=== PATIENT | male | born 1935 | race Caucasian/White ===

== ENCOUNTER → 2016-09-05 | Outpatient (CLI) | payer OTHER | LOC: FCPNEURO 20:00 | PROVIDERS: ATTEND Psychiatry & Neurology Sleep Medicine | DX: G47.33 Obstructive sleep apnea (adult) (pediatric) (principal); G47.34 Idiopathic sleep related nonobstructive alveolar hypoventilation ==

== ENCOUNTER 2016-11-13 19:36 | Emergency (ER) | payer OTHER ==
[2016-11-13 19:48] VITALS: RESP 16
[2016-11-13] MEDS ORDERED: NS 1,000 ML IV ONE (19:59)
--- NOTE | 2016-11-13 20:02 | EDPHY ---
H & P Stated Complaint: abd pain Source: Patient Exam Limitations: No limitations - Personal History Current Tetanus/Diphtheria Vaccine: Yes Current Tetanus Diphtheria and Acellular Pertussis (TDAP): Yes Tetanus Vaccine Date: <10 YRS AGO - Medical/Surgical History Hx Asthma: No Hx Chronic Respiratory Disease: No Hx Diabetes: Yes Hx Cardiac Disease: Yes Hx Renal Disease: No Hx Cirrhosis: No Hx Alcoholism: No Hx HIV/AIDS: No Hx Splenectomy or Spleen Trauma: No Other PMH: HTN, DMII, DVT R leg, gastric ulcer, descending aortic aneurysm, - Family History Significant Family History: No pertinent family hx - Social History Smoking Status: Never smoked Alcohol Use: Sober Drug Use: None Time Seen by Provider: 11/13/16 19:53 HPI/ROS: CHIEF COMPLAINT: Abdominal pain HISTORY OF PRESENT ILLNESS: The patient is an 81-year-old man who comes to the emergency department complaining of abdominal pain that began yesterday afternoon. He describes it as bilateral lower abdominal quadrants. He was seen by the PA today and told him he had left lower quadrant pain. He has a history of diabetes, DVT on Coumadin, aortic aneurysm that is being monitored and peptic ulcer disease that was diagnosed 2 months ago. He is currently on omeprazole. He denies upper abdominal pain or heartburn symptoms. No nausea vomiting. No diarrhea. This morning he had a temperature of 99.6. The patient states that he did take some Gas-X and this seemed to improve his symptoms. REVIEW OF SYSTEMS: Constitutional: denies: chills, fever, recent illness, recent injury EENTM: denies: blurred vision, double vision, nose congestion Respiratory: denies: cough, shortness of breath Cardiac: denies: chest pain, irregular heart rate, lightheadedness, palpitations Gastrointestinal/Abdominal: See HPI denies: diarrhea, nausea, vomiting, blood streaked stools Genitourinary: denies: dysuria, frequency, hematuria, pain Musculoskeletal: denies: joint pain, muscle pain Skin: denies: lesions, rash, jaundice, bruising Neurological: denies: headache, numbness, paresthesia, tingling, dizziness, weakness Hematologic/Lymphatic: denies: blood clots, easy bleeding, easy bruising Immunologic/allergic: denies: HIV/AIDS, transplant EXAM: GENERAL: Well-appearing, well-nourished and in no acute distress. HEAD: Atraumatic, normocephalic. EYES: Pupils equal round and reactive to light, extraocular movements intact, sclera anicteric, conjunctiva are normal. ENT: TMs normal, nares patent, oropharynx clear without exudates. Moist mucous membranes. NECK: Normal range of motion, supple without lymphadenopathy or JVD. LUNGS: Breath sounds clear to auscultation bilaterally and equal. No wheezes rales or rhonchi. HEART: Regular rate and rhythm without murmurs, rubs or gallops. ABDOMEN: Soft, nontender, normoactive bowel sounds. No guarding, no rebound. No masses appreciated. BACK: No CVA tenderness, no spinal tenderness, step-offs or deformities EXTREMITIES: Normal range of motion, no pitting or edema. No clubbing or cyanosis. NEUROLOGICAL: Cranial nerves II through XII grossly intact. Normal speech, normal gait. 5/5 strength, normal movement in all extremities, normal sensation PSYCH: Normal mood, normal affect. SKIN: Warm, dry, normal turgor, no visible rashes or lesions. (Zeb Melissa) Constitutional: Initial Vital Signs Temperature (C) 37.2 C 11/13/16 19:44 Heart Rate 81 11/13/16 19:44 Respiratory Rate 16 11/13/16 19:44 Blood Pressure 137/101 H 11/13/16 19:44 O2 Sat (%) 92 11/13/16 19:44 O2 Delivery Mode Room Air Allergies/Adverse Reactions: zolpidem tartrate [From Ambien] Allergy (Intermediate, Verified 09/02/12 11:41) RASH ON BILAT LEGS Home Medications: Medication Instructions Recorded Atenolol 11/13/16 Coumadin 11/13/16 Lisinopril 11/13/16 Metformin HCl 11/13/16 Omeprazole 11/13/16 Prednisone 11/13/16 Tamsulosin HCl 11/13/16 oxyCODONE/APAP 5/325 [Percocet 1 - 2 tab PO Q4H PRN #20 tab 11/13/16 5/325 (*)] Medical Decision Making ED Course/Re-evaluation: 9:00 p.m. care transferred to Dr. Everette Bhatia pending CT scan. If this is negative I suspect the patient will be stable for discharge. (Zeb Melissa) Differential Diagnosis: Partial list of the Differential diagnosis considered include but were not limited to; gastroenteritis, adenitis, diverticulitis, hernia and although unlikely based on the history and physical exam, I also considered aneurysm, dissection, ischemia, volvulus. (Zeb Melissa) Other Provider: This patient was signed out to me at 9pm by Dr. Melissa pending CTAP. This study reveals two kidney stones in his left ureter, which appears to be the cause of pain. Patient agrees his pain feels similar to prior kidney stones. Given age of patient, size of stones and presence of two stones, I offered the patient admission to the hospital. He refuses, however, and would like to be discharged home to try and follow-up with Dr. Will in the morning. He is currently pain-free. We discussed strict return precautions, including need for return to the ED if he is unable to obtain close follow-up. He is agreeable to this plan. He cannot take NSAIDs secondary to a stomach ulcer. (Everette Bhatia) - Data Points Laboratory Results: Laboratory Results 11/13/16 20:02 11/13/16 20:02 Medications Given: Discontinued Medications Sodium Chloride (Ns) 1,000 mls @ 0 mls/hr IV EDNOW ONE; Wide Open PRN Reason: Protocol Stop: 11/13/16 20:00 Last Admin: 11/13/16 20:08 Dose: 1,000 mls Oxycodone/Acetaminophen (Percocet 5/325mg Prepack#4) 1 btl TAKEHOME EDNOW ONE Stop: 11/13/16 21:53 Last Admin: 11/13/16 22:09 Dose: 1 btl Departure - Departure Disposition: Home, Routine, Self-Care Clinical Impression: Renal colic on left side Condition: Good Instructions: Renal Colic (ED) Additional Instructions: Followup with your urologist within one week. Return to the emergency apartment for fever, severe pain, inability to urinate or other concerns. Strain urine to try and catch the kidney stone and bring this to the urology appointment. Referrals: Victorino Estes MD [Primary Care Provider] - As per Instructions Diaz Will MD [Medical Doctor] - As per Instructions Prescriptions: oxyCODONE/APAP 5/325 [Percocet 5/325 (*)] 1 - 2 tab PO Q4H PRN #20 tab PRN Reason: Pain, Severe
[2016-11-13 20:20] LABS: % IMMATURE GRANULYOCYTES 0.5 % (0.0-1.1); ABSOLUTE IMMATURE GRANULOCYTES 0.04 10^3/uL (0.00-0.10); ADD DIFF? NO; ADD MORPH? NO; ADD SCAN? NO; ATYPICAL LYMPHOCYTE FLAG 0 (0-99); FRAGMENT RBC FLAG 0 (0-99); HEMATOCRIT 47.8 % (40.0-51.0); HEMOGLOBIN 16.1 g/dL (13.7-17.5); LEFT SHIFT FLG 0 (0-99); LIPEMIA HEMOLYSIS FLAG 80 (0-99); MEAN CELL HEMOGLOBIN 32.8 pg (27.9-34.1); MEAN CELL HEMOGLOBIN CONCENTR. 33.7 g/dL (32.4-36.7); MEAN CELL VOLUME 97.4 fL (81.5-99.8); MEAN PLATELET VOLUME 10.4 fL (8.7-11.7); PLATELET CLUMPS FLAG 0 (0-99); PLATELET COUNT 150 10^3/uL (150-400); RED BLOOD CELL COUNT 4.91 10^6/uL (4.40-6.38); RED CELL DISTRIBUTION WIDTH 13.4 % (11.5-15.2)
[2016-11-13] MEDS ORDERED: IOPAMIDOL (ISOVUE-300) 100 ML BTL ONE (20:28)
[2016-11-13 20:30] LABS: INR 1.86 (0.83-1.16); PROTIME(PATIENT) 21.5 SEC (12.0-15.0)
[2016-11-13 20:31] LABS: APTT 40.3 SEC (23.0-38.0)
[2016-11-13 20:38] LABS: ALANINE AMINOTRANSFERASE 26 IU/L (21-72); ALBUMIN 4.1 g/dL (3.5-5.0); ALKALINE PHOSPHATASE 63 IU/L (38-126); ANION GAP 12 mEq/L (8-16); ASPARTATE AMINOTRANSFERASE 18 IU/L (17-59); BILIRUBIN,TOTAL 1.2 mg/dL (0.1-1.4); BILIRUBIN-CONJUGATED 0.3 mg/dL (0.0-0.5); BILIRUBIN-UNCONJUGATED 0.9 mg/dL (0.0-1.1); CALCIUM 9.2 mg/dL (8.5-10.4); CARBON DIOXIDE 20 mEq/l (22-31); CHLORIDE 108 mEq/L (97-110); CREATININE 1.5 mg/dL (0.7-1.3); GLOMERULAR FILTRATION RATE 45; GLUCOSE 112 mg/dL (70-100); POTASSIUM 4.2 mEq/L (3.5-5.2); SODIUM 140 mEq/L (134-144); TOTAL PROTEIN 6.5 g/dL (6.3-8.2)
[2016-11-13 21:37] LABS: COLOR YELLOW; LEUKOCYTE ESTERASE,URINE NEGATIVE (NEGATIVE); NITRITE,URINE NEGATIVE (NEGATIVE)
[2016-11-13 21:44] LABS: MUCUS TRACE /lpf (NONE-1+); RBC,URINE 50-182 /hpf (0-3)
[2016-11-13] MEDS ORDERED: OXYCODONE/APAP 5/325MG PREPACK#4 BTL TAKEHOME ONE (21:52)
[2016-11-13 22:21] VITALS: BP 135/90; PULSE 80; TEMP 98.6; O2SAT 93
== END 2016-11-13 22:18 | disposition home or self-care (01) ==
DX: N23 Unspecified renal colic (principal); I10 Essential (primary) hypertension; E11.9 Type 2 diabetes mellitus without complications; E86.9 Volume depletion, unspecified; Z79.01 Long term (current) use of anticoagulants; Z79.84 Long term (current) use of oral hypoglycemic drugs
CPT/HCPCS: 74177; 96360; 99285; Q9967

== ENCOUNTER → 2016-12-10 | Outpatient (CLI) | payer OTHER | LOC: FIMAGING 10:17 | PROVIDERS: ATTEND Urology | DX: Z87.442 Personal history of urinary calculi (principal) ==

== ENCOUNTER → 2017-04-02 | Outpatient (CLI) | payer OTHER ==
--- NOTE | 2017-04-02 11:47 | NOWCEV ---
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 Chico does experience severe, debilitating pain in his LB and hips which he reports can become as high as a 9/10. He received weekly injections of pain medications in his spine to manage symptoms, but continues to have significant debility. Chico's ability to ambulate has been declining for some time due to his pain and progressing arthritis, and he is now having difficulty accessing MRADLs in his home. He was referred to this clinic by his doctor to have recommendation made for the most medically appropriate power mobility device to meet his needs in the home. Functional Mobility - Chico is able to ambulate short distances with his rollator walker. Maximally he can ambulate 50', but on days where his pain in exacerbated he has difficulty walking distances between the bedroom, bathroom, and kitchen. When he walks he has a narrow XOCHITL where his feet frequently touch , and a flexed posture where he places a significant amount of weight through his UEs on his rollator walker to offload his spine and decrease pain. Chico becomes short of breath ambulating 30' distances in the clinic and cannot statically stand, even when pressing down through his rollator, due to increased back pain. He report on days when his pain is exacerbated he stays in bed and has difficulty ambulating distances to the bathroom. To complete transfers, Chico requires significant UE support from his walker and chair to transition to standing, and use of his rollator walker to perform a stand step transition. He is independent with bed mobility. Chico reports that he has trialed driving a friend's power scooter, and was able to safely transfer on/ off the device and maneuver the scooter without difficulty or concerns of safety. Motor involvement - Chico has significant tightness in B hamstring, and pain with all ROM in B hips due to his OA. He has significant limitations in B shoulders due to his rotator cuff tears. R shoulder flexion is limited to 90degrees, and L shoulder flexion is limited to 120degrees. MMT is as follows: DF B: 4/5, knee extension B: 4+/5, hip flexion B: 4/5, hip abduction L: 2+/5, R : 3-/5, shoulder flexion and abduction B: 4-/5 in available range, and painful. Chico also has impaired balance, and has a h/o 1 fall when ambulating in his home with his AD. He can only stand for ~1min on a "good day" due to the pain in his LB. Posture - Chico sits with a kyphotic posture, posterior pelvic tilt, forward head, and rounded shoulders. His R shoulder is lower than his L, and his pelvis is relatively level. Skin/ Sensation - Chico does not have any h/o skin breakdown. He does have decreased sensation in his feet from his diabetic neuropathy. He also reports radicular pain into his R L4/L5 distributions. He has 1+ pitting edema in his R LE as a result of his DVT. Endurance - Chico has severely limited endurance. Maximally he can ambulate 50' with use of his rollator walker. When his pain is exacerbated, he has difficulty getting out of bed and ambulating distances between rooms in his home to access ADLs. ADLs - Chico completes all ADLs such as dressing, bathing, and washing up at a modified independent level from a seated position. He relies fully on his to complete tasks such as cooking and cleaning, as his ability to stand and ambulate to complete activities is limited by pain in his back and hips. Cognitive/Social - Chico lives with his in a single level home with a level entry. He is retired and he is able to drive. Current wheelchair - Chico does not own any manual wheelchair, power wheelchair or power scooter. MEDICAL and FUNCTIONAL NEED/OBJECTIVES * To procure a power scooter to provide Chico with safe and consistent access to MRADLs in the home. PRIMARY FUNCTIONAL LIMITATION (G Code) * Mobility CURRENT STATUS OF PRIMARY FUNCTIONAL LIMITATION (Severity Modifier) * At least 60 percent but less than 80 percent impaired, limited or restricted ( CL) GOAL STATUS OF PRIMARY FUNCTIONAL LIMITATION (Severity Modifier) * At least 60 percent but less than 80 percent impaired, limited or restricted ( CL) DISCHARGE STATUS OF PRIMARY FUNCTIONAL LIMITATION (Severity Modifier) * At least 60 percent but less than 80 percent impaired, limited or restricted ( CL) EQUIPMENT RECOMMENDATIONS AND JUSTIFICATIONS The following recommendations are believed to be the most cost effective way to meet the patients medical and functional needs. * Pride 4-wheel power scooter: Needed to provide Chico with safe and consistent access to MRADLs in the home. Chico cannot consistently ambulate distances in him home between the bedroom, bathroom, and kitchen to allow him to access MRADLs even with use of his rollator walker due to severe back and hip pain. Chico cannot self propel a MWC, even a light weight or ultra light weight model due to B rotator cuff tears and decreased UE strength. A power scooter will allow Chico is safety and consistently access MRADLs in his home without exacerbating his pain. Chico has trialed a power scooter and was able to safety transfer on/off the device independently, and was able to safely drive the device utilizing the [employer] system without concern or difficulty. These recommendations are based on the likelihood that Chico will require the use of a power mobility device for mobility for the rest of his life as his OA continues to progress. Chico is willing and able to safely utilize the power scooter. If you have any questions or concerns regarding the stated recommendations, please feel free to contact the therapist at . Thank you for your cooperation in obtaining the necessary equipment for this patient. MARYANN Samuel
== END ==
PROVIDERS: ATTEND Internal Medicine Rheumatology
DX: M43.06 Spondylolysis, lumbar region (principal); Z99.3 Dependence on wheelchair
CPT/HCPCS: 97162; G8978; G8979; G8980

== ENCOUNTER 2017-04-15 06:50 | Emergency (ER) | payer OTHER ==
[2017-04-15 07:06] VITALS: RESP 18
[2017-04-15] MEDS ORDERED: HYDROmorphONE/DILAUDID 1 MG/ML INJ ONE (07:22)
[2017-04-15] MEDS ORDERED: ONDANSETRON 4 MG/2 ML VIAL ONE (07:22)
[2017-04-15] MEDS ORDERED: HYDROmorphONE/DILAUDID 1 MG/ML INJ IVP ONE ×3 (07:29→09:22)
[2017-04-15] MEDS ORDERED: ONDANSETRON 4 MG/2 ML VIAL IVP ONE (07:29)
--- NOTE | 2017-04-15 07:35 | EDPHY ---
HPI/HX/ROS/PE/MDM Narrative: CHIEF COMPLAINT: Abdominal pain, hematuria HISTORY OF PRESENT ILLNESS: This patient is an anticoagulated (Coumadin) 82 year old male with history of diabetes and DVT complaining of two day history of hematuria and abdominal and back pain onset around 2am this morning. Hematuria began two days ago, but seemed to have resolved by this morning. Today, he woke at 2am with pain that initially seemed like a stomach ache. He took Pepcid with no relief. He currently has pain in his right lower quadrant and suprapubic area. This does not radiate to his testicles. He has right-sided low back pain as well but is not sure whether this is new or due to his low back arthritis. He is nauseous and has been dry heaving but denies vomiting. No fever, chills, chest pain, shortness of breath, palpitations, diarrhea, headache, lightheadedness. REVIEW OF SYSTEMS: Aside from elements discussed in the HPI, a comprehensive 10-point review of systems was reviewed and is negative. PAST MEDICAL HISTORY: 1. Arthritis 2. History of right-sided DVT (Coumadin) 3. Stomach ulcer 4. Diabetes mellitus type II (Metformin) 5. History of aortic aneurysm. SOCIAL HISTORY: . at bedside. Lives in [place]. Retired. VITAL SIGNS: Reviewed by me GENERAL: Well-developed, well-nourished, resting comfortably in no respiratory distress. HEENT: Atraumatic. Eyes: No icterus, no injection. Mouth: moist mucous membranes. No erythema or lesions. Neck: supple with no adenopathy. LUNGS: Clear to auscultation bilaterally, no wheezes, rhonchi or rales. CARDIAC: Regular rate and rhythm, no rubs, murmurs or gallops. ABDOMEN: Right lower quadrant, suprapubic tenderness. Soft, nondistended, bowel sounds normal. BACK: Right lumbar paraspinous muscle spasm. No left CVA tenderness. EXTREMITIES: Right lower extremity slightly swollen. Good pedal and femoral pulses. No trauma. No edema. Range of motion is normal throughout. NEURO: Alert and oriented, grossly nonfocal. SKIN: Warm and dry, no rash. PSYCHIATRIC: Normal mentation, no agitation. Portions of this note were transcribed by a biomedical manager. I personally performed a history, physical exam, medical decision making, and confirmed accuracy of information the transcribed note. ED Course: This 82 year old male presents with right lower quadrant and suprapubic abdominal pain and tenderness onset at 2am this morning. Exam additionally reveals a muscle spasm in his right lumbar paraspinous muscles. Patient notes his INR was high last Friday and he recently reduced his Coumadin dosage. IV established. Plan for labs including CBC, chemistries, coag, UA. Plan for CT abdomen w/o contrast to r/o kidney stone or other acute processes. Plan to administer 1mg IV Dilaudid and 4mg IV Zofran for symptom relief. Patient continues to complain of pain. Plan to administer an additional 0.5mg IV Dilaudid. Plan to administer 0.5mg IV Ativan for relief of the patient's right paraspinous muscle spasm. 8:[address] Cordero, radiologist. CT abdomen/pelvis shows 3mm stone at right UVJ with obstructive uropathy. Reassessed patient. Discussed imaging results with him and his . UA pending. UA positive for urine blood. No evidence of UTI. Reviewed laboratory results. INR therapeutic at 2.65 09:18 Reassessed patient. He is resting comfortably but continues to complain of pain 6/10 in severity. Administered an additional 1mg IV Dilaudid. Administered 0.4mg PO Flomax. 10:26 Plan to discharge home in good condition with prescription for Percocet and Zofran. He has Flomax at home. The patient will follow up with his urologist , Dr. Will. Return precautions discussed. He and his are comfortable with this plan. MDM: Differential diagnosis of the patient's flank pain was considered including but not limited to musculoskeletal causes, kidney stone, pyelonephritis, shingles, and intra-abdominal causes such as diverticulitis and appendicitis. - Data Points Imaging Results: CT Abdomen Impression: 1. Right-sided obstructive uropathy related to a 3 mm distal ureteral calculus at the ureterovesical junction. 2. See above report for additional findings. Results called and discussed with Tova Walls M.D. on 04/15/2017 at 8:28 a.m. Dictated By: Ji Cordero MD Imaging: Discussed imaging studies w/ fisher scallop Radiologist Laboratory Results: Laboratory Results 04/15/17 07:23 04/15/17 07:23 Medications Given: Discontinued Medications Hydromorphone HCl (Dilaudid) 1 mg IVP EDNOW ONE Stop: 04/15/17 07:30 Last Admin: 04/15/17 07:32 Dose: 1 mg Hydromorphone HCl (Dilaudid) 1 mg IVP EDNOW ONE Stop: 04/15/17 09:23 Last Admin: 04/15/17 09:23 Dose: 1 mg Sodium Chloride (Ns) 500 mls @ 1,000 mls/hr IV EDNOW ONE PRN Reason: Protocol Stop: 04/15/17 10:20 Last Admin: 04/15/17 09:50 Dose: 500 mls Lorazepam (Ativan Injection) 0.5 mg IVP EDNOW ONE Stop: 04/15/17 08:15 Last Admin: 04/15/17 08:30 Dose: 0.5 mg Ondansetron HCl (Zofran) 4 mg IVP EDNOW ONE Stop: 04/15/17 07:30 Last Admin: 04/15/17 07:32 Dose: 4 mg Tamsulosin HCl (Flomax) 0.4 mg PO EDNOW ONE Stop: 04/15/17 09:23 Last Admin: 04/15/17 09:23 Dose: 0.4 mg General Initial Vital Signs: Initial Vital Signs Temperature (C) 36.5 C 04/15/17 07:04 Heart Rate 64 04/15/17 07:04 Respiratory Rate 18 04/15/17 07:04 Blood Pressure 164/97 H 04/15/17 07:04 O2 Sat (%) 93 04/15/17 07:04 O2 Delivery Mode Room Air O2 (L/minute) 2 Allergies/Adverse Reactions: zolpidem tartrate [From Ambien] Allergy (Intermediate, Verified 04/15/17 07:02) RASH ON BILAT LEGS Home Medications: Medication Instructions Recorded Atenolol 11/13/16 Coumadin 11/13/16 Lisinopril 11/13/16 Metformin HCl 11/13/16 Omeprazole 11/13/16 Prednisone 11/13/16 Hydrocodon-Acetaminophen 5-500 04/15/17 Ondansetron Odt [Zofran Odt 4 mg 4 mg PO Q6 PRN #8 tab 04/15/17 (RX)] Oxycodone HCl 5 mg PO QID PRN #15 capsule 04/15/17 Departure - Departure Disposition: Home, Routine, Self-Care Clinical Impression: Calculus of right kidney Condition: Good Instructions: Kidney Stones (ED), How to Strain Your Urine (ED) Additional Instructions: 1. Follow up with your urologist within one week. 2. Take Percocet as prescribed as needed for severe pain. You may also take Tylenol (acetaminophen) 650mg every 4-6 hours as needed for pain, but do not take this in addition to Percocet as that medication already contains acetaminophen. No more than 3000mg of Acetaminophen should be taken in 24 hours (for an adult). 3. Take Zofran as prescribed as needed for nausea. 4. Return to the emergency department for fever, severe pain, inability to urinate or other concerns. 5. Strain urine to try and catch the kidney stone and bring this to the urology appointment. Referrals: Victorino Estes MD [Primary Care Provider] - As per Instructions Diaz Will MD [Medical Doctor] - As per Instructions Prescriptions: Ondansetron Odt [Zofran Odt 4 mg (RX)] 4 mg PO Q6 PRN #8 tab PRN Reason: Nausea Oxycodone HCl 5 mg PO QID PRN #15 capsule PRN Reason: Pain, Breakthrough Report Scribed for: Tova Walls Report Scribed by: Myla Wan Date of Report: 04/15/17 Time of Report: 08:30
[2017-04-15 07:45] LABS: % IMMATURE GRANULYOCYTES 0.5 % (0.0-1.1); ABSOLUTE IMMATURE GRANULOCYTES 0.05 10^3/uL (0.00-0.10); ADD DIFF? NO; ADD MORPH? NO; ADD SCAN? NO; ATYPICAL LYMPHOCYTE FLAG 0 (0-99); FRAGMENT RBC FLAG 0 (0-99); HEMATOCRIT 45.1 % (40.0-51.0); HEMOGLOBIN 15.5 g/dL (13.7-17.5); LEFT SHIFT FLG 0 (0-99); LIPEMIA HEMOLYSIS FLAG 90 (0-99); MEAN CELL HEMOGLOBIN 31.8 pg (27.9-34.1); MEAN CELL HEMOGLOBIN CONCENTR. 34.4 g/dL (32.4-36.7); MEAN CELL VOLUME 92.6 fL (81.5-99.8); MEAN PLATELET VOLUME 10.4 fL (8.7-11.7); PLATELET CLUMPS FLAG 0 (0-99); PLATELET COUNT 156 10^3/uL (150-400); RED BLOOD CELL COUNT 4.87 10^6/uL (4.40-6.38); RED CELL DISTRIBUTION WIDTH 14.2 % (11.5-15.2)
[2017-04-15 07:53] LABS: INR 2.65 (0.83-1.16); PROTIME(PATIENT) 28.2 SEC (12.0-15.0)
[2017-04-15 07:54] LABS: APTT 40.9 SEC (23.0-38.0)
[2017-04-15 07:55] LABS: ANION GAP 10 mEq/L (8-16); CALCIUM 9.2 mg/dL (8.5-10.4); CARBON DIOXIDE 23 mEq/l (22-31); CHLORIDE 110 mEq/L (97-110); CREATININE 1.1 mg/dL (0.7-1.3); GLOMERULAR FILTRATION RATE > 60; GLUCOSE 158 mg/dL (70-100); POTASSIUM 4.2 mEq/L (3.5-5.2); SODIUM 143 mEq/L (134-144)
[2017-04-15] MEDS ORDERED: LORazepam 2 MG/ML INJ IVP ONE (08:14)
[2017-04-15] MEDS ORDERED: TAMSULOSIN HCL 0.4 MG CAP PO ONE ×2 (09:20→09:22)
[2017-04-15 09:31] LABS: COLOR YELLOW; LEUKOCYTE ESTERASE,URINE NEGATIVE (NEGATIVE); NITRITE,URINE NEGATIVE (NEGATIVE)
[2017-04-15 09:48] LABS: BACTERIA TRACE /hpf (NONE SEEN); MUCUS 3+ /lpf (NONE-1+); RBC,URINE 50-182 /hpf (0-3)
[2017-04-15] MEDS ORDERED: NS 500 ML IV ONE (09:51)
[2017-04-15 10:49] VITALS: BP 129/65; PULSE 69; TEMP 98.8; O2SAT 94
== END 2017-04-15 10:49 | disposition home or self-care (01) ==
DX: N20.0 Calculus of kidney (principal); E11.9 Type 2 diabetes mellitus without complications; E86.9 Volume depletion, unspecified; Z79.01 Long term (current) use of anticoagulants; Z79.84 Long term (current) use of oral hypoglycemic drugs
CPT/HCPCS: 74176; 96374; 96375; 96376; 99285; J1170; J2060; J2405

== ENCOUNTER 2017-04-26 10:54 | Emergency (ER) | payer OTHER ==
[2017-04-26] MEDS ORDERED: ONDANSETRON 4 MG/2 ML VIAL ONE (11:41)
[2017-04-26] MEDS ORDERED: HYDROmorphONE/DILAUDID 1 MG/ML INJ IVP ONE (12:01)
[2017-04-26] MEDS ORDERED: KETOROLAC 30 MG/1 ML SDV IVP ONE (12:02)
--- NOTE | 2017-04-26 12:06 | EDPHY ---
H & P Time Seen by Provider: 04/26/17 11:41 HPI/ROS: Chief complaint. Right flank pain HPI. 82-year-old male seen 2 weeks ago in the emergency department for kidney stone. He presents today with right flank pain that began this morning. He thinks he passed the previous kidney stone. This feels similar. Nausea without vomiting. Pain and right flank radiating down to right groin and testicle. No blood in his urine. He is on Coumadin for previous DVT. No fever. No urinary symptoms. Patient feels he can't find a comfortable position and the discomfort is not particularly worse with movement. ROS Constitutional. no fever/chills, no weakness Eyes. no problems with vision ENT. no sore throat, no nasal drainage Cardiovascular. no chest pain Respiratory. no shortness of breath, no cough Abdominal. Right flank pain with nausea . no problems urinating MS. no calf pain/swelling, no neck/back pain, no joint pain Skin. no rash Lymph. no swollen glands Neuro. no headache, no dizziness, no difficulty walking or with speech Past Medical/Surgical History: Kidney stones, hypertension, diabetes, DVT, peptic ulcer disease, descending aortic aneurysm Social History: , nonsmoker, no alcohol Smoking Status: Never smoked Physical Exam: General Appearance: Alert well-developed male moderate distress vital signs stable Eyes: Pupils equal and round no pallor or injection. ENT, Mouth: Mucous membranes are moist. Respiratory: There are no retractions, lungs are clear to auscultation. Cardiovascular: Regular rate and rhythm. Gastrointestinal: Abdomen is soft and nontender, no masses, bowel sounds normal. Patient shows me right flank pain and right lower quadrant pain but it is not worse with palpation. No organomegaly. No pulsatile mass. Normal bowel sounds Neurological: Awake and alert, sensory and motor exams grossly normal. Skin: Warm and dry, no rashes. Musculoskeletal: Neck is supple nontender. Extremities symmetrical, full range of motion. Psychiatric: Patient is oriented X 3, there is no agitation. Constitutional: Initial Vital Signs Temperature (C) 36.5 C 04/26/17 10:59 Heart Rate 60 04/26/17 10:59 Respiratory Rate 18 04/26/17 10:59 Blood Pressure 132/74 H 04/26/17 10:59 O2 Sat (%) 89 L 04/26/17 10:59 O2 Delivery Mode Nasal Cannula O2 (L/minute) 2 Allergies/Adverse Reactions: zolpidem tartrate [From Ambien] Allergy (Intermediate, Verified 04/15/17 07:02) RASH ON BILAT LEGS Home Medications: Medication Instructions Recorded Atenolol 11/13/16 Coumadin 11/13/16 Lisinopril 11/13/16 Metformin HCl 11/13/16 Omeprazole 11/13/16 Prednisone 11/13/16 Hydrocodon-Acetaminophen 5-500 04/15/17 Ondansetron Odt [Zofran Odt 4 mg 4 mg PO Q6 PRN #8 tab 04/15/17 (RX)] Oxycodone HCl 5 mg PO QID PRN #15 capsule 04/15/17 Ondansetron Odt [Zofran Odt] 4 mg PO Q4PRN PRN #4 tab 04/26/17 oxyCODONE/APAP 5/325 [Percocet 1 tab PO Q4-6PRN PRN #10 tab 04/26/17 5/325] Medical Decision Making - Diagnostics Imaging Results: Imaging Impressions Abdomen/Pelvis CT 04/26/17 12:01 Impression: 1 ureteral stone has passed. The other has moved caudally and is now in the distal ureter. Results called and discussed with ADOLPH BRADLEY, at 04/26/2017 13:09 Attention: This CT examination is specifically designed to evaluate patients who are clinically suspected of having acute obstructive uropathy. This examination does not use radiographic contrast, and as such, provides only a limited evaluation of the abdomen, pelvis and retroperitoneum. If there is further clinical suspicion for pathological conditions other than obstructive uropathy, a complete CT evaluation of the abdomen and pelvis utilizing intravenous, oral, and rectal contrast should be considered. General information for patients regarding this examination can be found at [email or web address]. If you have questions or comments about this report, please contact me at [phone] (hospital) or [phone] (cell). Noncontrast CT abdomen and pelvis shows that the previous 3 mm stone had passed. There is a 6 mm stone about 2 cm above the UVJ with moderate hydronephrosis Procedures: IV normal saline. Zofran, Dilaudid, Toradol IV ED Course/Re-evaluation: Re-evaluation 2:20 p.m.--patient is stable. No pain. He the patient, his , and I discussed imaging study and lab results. We discussed treatment plan. He is offered admission but would like to be treated as outpatient. He is encouraged to return should oral pain medication not be strong enough. He is also encouraged to follow up with Urology. They expressed understanding and agreement Differential Diagnosis: Considered diverticulitis, kidney infection, kidney stone Urinalysis shows blood only and no evidence for infection - Data Points Laboratory Results: Laboratory Results 04/26/17 11:35 04/26/17 11:35 04/26/17 04/26/17 04/26/17 14:24 11:35 11:35 WBC RBC Hgb Hct MCV MCH MCHC RDW Plt Count MPV Neut % (Auto) Lymph % (Auto) Karnes % (Auto) Eos % (Auto) Baso % (Auto) Nucleat RBC Rel Count Absolute Neuts (auto) Absolute Lymphs (auto) Absolute Monos (auto) Absolute Eos (auto) Absolute Basos (auto) Absolute Nucleated RBC Immature Gran % Immature Gran # PT 20.3 SEC H SEC (12.0-15.0) INR 1.72 H (0.83-1.16) APTT 35.9 SEC SEC (23.0-38.0) Sodium 146 mEq/L H mEq/L (134-144) Potassium 4.2 mEq/L mEq/L (3.5-5.2) Chloride 108 mEq/L mEq/L (97-110) Carbon Dioxide 23 mEq/l mEq/l (22-31) Anion Gap 15 mEq/L mEq/L (8-16) BUN 31 mg/dL H mg/dL (7-23) Creatinine 1.1 mg/dL mg/dL (0.7-1.3) Estimated GFR > 60 Glucose 109 mg/dL H mg/dL (70-100) Calcium 9.0 mg/dL mg/dL (8.5-10.4) Urine Color YELLOW Urine Appearance CLEAR Urine pH 5.0 (5.0-7.5) Ur Specific Hay 1.023 (1.002-1.030) Urine Protein NEGATIVE (NEGATIVE) Urine Ketones NEGATIVE (NEGATIVE) Urine Blood 3+ H (NEGATIVE) Urine Nitrate NEGATIVE (NEGATIVE) Urine Bilirubin NEGATIVE (NEGATIVE) Urine Urobilinogen NEGATIVE EU EU (0.2-1.0) Ur Leukocyte Esterase NEGATIVE (NEGATIVE) Urine RBC 50-182 /hpf H /hpf (0-3) Urine WBC 1-3 /hpf /hpf (0-3) Ur Epithelial Cells NONE SEEN /lpf /lpf (NONE-1+) Urine Mucus 1+ /lpf /lpf (NONE-1+) Urine Glucose NEGATIVE (NEGATIVE) 04/26/17 11:35 WBC 8.62 10^3/uL 10^3/uL (3.80-9.50) RBC 4.69 10^6/uL 10^6/uL (4.40-6.38) Hgb 15.0 g/dL g/dL (13.7-17.5) Hct 45.3 % % (40.0-51.0) MCV 96.6 fL fL (81.5-99.8) MCH 32.0 pg pg (27.9-34.1) MCHC 33.1 g/dL g/dL (32.4-36.7) RDW 14.4 % % (11.5-15.2) Plt Count 154 10^3/uL 10^3/uL (150-400) MPV 10.6 fL fL (8.7-11.7) Neut % (Auto) 78.7 % H % (39.3-74.2) Lymph % (Auto) 10.7 % L % (15.0-45.0) Karnes % (Auto) 9.4 % % (4.5-13.0) Eos % (Auto) 0.5 % L % (0.6-7.6) Baso % (Auto) 0.2 % L % (0.3-1.7) Nucleat RBC Rel Count 0.0 % % (0.0-0.2) Absolute Neuts (auto) 6.79 10^3/uL H 10^3/uL (1.70-6.50) Absolute Lymphs (auto) 0.92 10^3/uL L 10^3/uL (1.00-3.00) Absolute Monos (auto) 0.81 10^3/uL H 10^3/uL (0.30-0.80) Absolute Eos (auto) 0.04 10^3/uL 10^3/uL (0.03-0.40) Absolute Basos (auto) 0.02 10^3/uL 10^3/uL (0.02-0.10) Absolute Nucleated RBC 0.00 10^3/uL 10^3/uL (0-0.01) Immature Gran % 0.5 % % (0.0-1.1) Immature Gran # 0.04 10^3/uL 10^3/uL (0.00-0.10) PT INR APTT Sodium Potassium Chloride Carbon Dioxide Anion Gap BUN Creatinine Estimated GFR Glucose Calcium Urine Color Urine Appearance Urine pH Ur Specific Hay Urine Protein Urine Ketones Urine Blood Urine Nitrate Urine Bilirubin Urine Urobilinogen Ur Leukocyte Esterase Urine RBC Urine WBC Ur Epithelial Cells Urine Mucus Urine Glucose Medications Given: Discontinued Medications Hydromorphone HCl (Dilaudid) 0.5 mg IVP EDNOW ONE Stop: 04/26/17 12:02 Last Admin: 04/26/17 12:30 Dose: 0.5 mg Ketorolac Tromethamine (Toradol) 15 mg IVP EDNOW ONE Stop: 04/26/17 12:03 Last Admin: 04/26/17 12:30 Dose: 15 mg Departure - Departure Disposition: Home, Routine, Self-Care Clinical Impression: Renal colic on right side Condition: Good Instructions: Kidney Stones (ED), How to Strain Your Urine (ED) Additional Instructions: Drink plenty of fluids and stay hydrated. Oxycodone as needed for pain. Zofran if needed for nausea. Return for worsening symptoms. Strain all urine next 24- 48 hours and save stone for urologist. Call Dr. Will on Friday when the office opens for follow-up evaluation of kidney stone Referrals: Victorino Estes MD [Primary Care Provider] - As per Instructions Diaz Will MD [Medical Doctor] - 2-3 days without fail Prescriptions: Ondansetron Odt [Zofran Odt] 4 mg PO Q4PRN PRN #4 tab PRN Reason: Nausea/Vomiting, Use 1st oxyCODONE/APAP 5/325 [Percocet 5/325] 1 tab PO Q4-6PRN PRN #10 tab PRN Reason: Pain, Moderate
[2017-04-26 13:03] VITALS: RESP 16
[2017-04-26 13:11] LABS: PLATELET COUNT 154 10^3/uL (150-400)
[2017-04-26 13:20] LABS: INR 1.72 (0.83-1.16); PROTIME(PATIENT) 20.3 SEC (12.0-15.0)
[2017-04-26 15:03] VITALS: BP 137/82; PULSE 55; TEMP 98.4; O2SAT 93
== END 2017-04-26 15:02 | disposition home or self-care (01) ==
DX: N23 Unspecified renal colic (principal); I10 Essential (primary) hypertension; E11.9 Type 2 diabetes mellitus without complications; Z79.84 Long term (current) use of oral hypoglycemic drugs
CPT/HCPCS: 74176; 96374; 96375; 99285; J1170; J1885; J2405

== ENCOUNTER 2017-05-02 15:45 | Observation (INO) | payer OTHER ==
[2017-05-02] MEDS ORDERED: NS 1,000 ML IV ONE ×2 (15:54→18:59)
--- NOTE | 2017-05-02 15:54 | EDPHY ---
H & P Time Seen by Provider: 05/02/17 15:45 HPI/ROS: CHIEF COMPLAINT: Near-syncope nausea vomiting and diarrhea HISTORY OF PRESENT ILLNESS: This 82-year-old man was in the bathroom this morning at 10:00 a.m. and had lightheadedness and near syncope and collapse on the rug in the bathroom. Subsequent to that he has had multiple episodes of vomiting. He had a single episode of loose stool and diarrhea today at 9:30 a.m.. Vomiting is severe not associated with hematemesis or coffee-ground emesis. Associated with a little bit of abdominal cramping. No chest pain or shortness of breath. Worse with any attempted oral intake, he is thirsty REVIEW OF SYSTEMS: Eye: no change in vision ENT: no sore throat Cardiac: No chest pain Pulmonary: no cough or SOB Abdomen: HPI Musculoskeletal: no back pain Skin: no rash Neuro: no headache Constitutional: no fever : no urinary symptoms A comprehensive 10 point review of systems is otherwise negative aside from elements mentioned in the history of present illness. PAST MEDICAL HISTORY: Right leg DVT on Coumadin, kidney stones Social history: General Appearance: Alert and conversant, cooperative. Eyes: No scleral icterus. ENT, Mouth: Dry mucous membranes. Respiratory: Normal respiratory effort, breath sounds equal, lungs are clear to auscultation. Cardiovascular: Regular rate and rhythm. Gastrointestinal: Abdomen is soft and non tender. Bowel sounds present. Neurological: Alert, able to assist in transferring onto the bed, moving all extremities, face symmetric. Skin: Warm and dry, no rashes. Musculoskeletal: No peripheral edema. Psychiatric: Not agitated. Emergency Department course/MDM: Presents with severe vomiting and diarrhea dehydration and near syncope. Plan for EKG, IV fluids, labs, admission for symptomatic control. Smoking Status: Never smoked Constitutional: Initial Vital Signs Temperature (C) 36.7 C 05/02/17 16:28 Heart Rate 88 05/02/17 16:28 Respiratory Rate 18 05/02/17 16:28 Blood Pressure 174/102 H 05/02/17 16:28 O2 Sat (%) 96 05/02/17 16:28 O2 Delivery Mode Room Air Allergies/Adverse Reactions: zolpidem tartrate [From Ambien] Allergy (Intermediate, Verified 04/15/17 07:02) RASH ON BILAT LEGS Home Medications: Medication Instructions Recorded Ondansetron Odt [Zofran Odt 4 mg 4 mg PO Q6 PRN #8 tab 04/15/17 (RX)] oxyCODONE/APAP 5/325 [Percocet 1 tab PO Q4-6PRN PRN #10 tab 04/26/17 5/325] Atenolol [Tenormin 25 mg (*)] 25 mg PO DAILY 05/02/17 Herbals/Supplements -Info Only 1 ea PO DAILY 05/02/17 Lisinopril [Zestril 5 mg (*)] 5 mg PO DAILY 05/02/17 Mirtazapine [Remeron soltab 15 mg 15 mg PO DAILY 05/02/17 (*)] Omeprazole [Prilosec 20 mg] 20 mg PO DAILY 05/02/17 Tamsulosin HCl [Flomax 0.4 MG (*)] 0.4 mg PO BID 05/02/17 Warfarin Sodium [Coumadin 4MG (*)] 4 mg PO EVERY OTHER DAY 05/02/17 Warfarin Sodium [Coumadin 5MG (*)] 5 mg PO Q2D 05/02/17 metFORMIN HCL [Metformin HCl ER] 500 mg PO DAILY 05/02/17 predniSONE 5 mg PO DAILY 05/02/17 Medical Decision Making - Diagnostics EKG Interpretation: 12-lead EKG interpreted by me; official reading is in trace master. My interpretation is sinus rhythm rate 53 with late anterior RS transition and left anterior fascicular block Differential Diagnosis: Differential diagnosis considered for near syncope including but not limited to vasovagal syncope, arrhythmia, dehydration, and blood loss. Consult/Admit Bed Type: [place] [id number] - Data Points Laboratory Results: Laboratory Results 05/02/17 16:00 05/02/17 18:25 05/02/17 05/02/17 05/02/17 18:25 16:00 16:00 WBC 7.92 10^3/uL 10^3/uL (3.80-9.50) RBC 4.74 10^6/uL 10^6/uL (4.40-6.38) Hgb 15.2 g/dL g/dL (13.7-17.5) Hct 45.1 % % (40.0-51.0) MCV 95.1 fL fL (81.5-99.8) MCH 32.1 pg pg (27.9-34.1) MCHC 33.7 g/dL g/dL (32.4-36.7) RDW 14.3 % % (11.5-15.2) Plt Count 170 10^3/uL 10^3/uL (150-400) MPV 10.4 fL fL (8.7-11.7) Neut % (Auto) 83.4 % H % (39.3-74.2) Lymph % (Auto) 10.5 % L % (15.0-45.0) Sequoyah % (Auto) 5.4 % % (4.5-13.0) Eos % (Auto) 0.1 % L % (0.6-7.6) Baso % (Auto) 0.3 % % (0.3-1.7) Nucleat RBC Rel Count 0.0 % % (0.0-0.2) Absolute Neuts (auto) 6.61 10^3/uL H 10^3/uL (1.70-6.50) Absolute Lymphs (auto) 0.83 10^3/uL L 10^3/uL (1.00-3.00) Absolute Monos (auto) 0.43 10^3/uL 10^3/uL (0.30-0.80) Absolute Eos (auto) 0.01 10^3/uL L 10^3/uL (0.03-0.40) Absolute Basos (auto) 0.02 10^3/uL 10^3/uL (0.02-0.10) Absolute Nucleated RBC 0.00 10^3/uL 10^3/uL (0-0.01) Immature Gran % 0.3 % % (0.0-1.1) Immature Gran # 0.02 10^3/uL 10^3/uL (0.00-0.10) Sodium 142 mEq/L mEq/L TNP (134-144) Potassium 4.4 mEq/L mEq/L TNP (3.5-5.2) Chloride 110 mEq/L mEq/L TNP (97-110) Carbon Dioxide 24 mEq/l mEq/l TNP (22-31) Anion Gap 8 mEq/L mEq/L TNP (8-16) BUN 26 mg/dL H mg/dL TNP (7-23) Creatinine 0.8 mg/dL mg/dL TNP (0.7-1.3) Estimated GFR > 60 TNP Glucose 131 mg/dL H mg/dL TNP (70-100) Calcium 8.3 mg/dL L mg/dL TNP (8.5-10.4) Troponin I < 0.012 ng/mL ng/mL (0.000-0.034) Specimen Hemolysis 231 Medications Given: Discontinued Medications Sodium Chloride (Ns) 1,000 mls @ 0 mls/hr IV EDNOW ONE; Wide Open PRN Reason: Protocol Stop: 05/02/17 15:55 Last Admin: 05/02/17 16:00 Dose: 1,000 mls Sodium Chloride (Ns) 1,000 mls @ 0 mls/hr IV EDNOW ONE; Wide Open PRN Reason: Protocol Stop: 05/02/17 19:00 Last Admin: 05/02/17 19:26 Dose: 1,000 mls Ondansetron HCl (Zofran) 4 mg IVP EDNOW ONE Stop: 05/02/17 16:32 Last Admin: 05/02/17 16:38 Dose: 4 mg Departure - Departure Disposition: [facility] Acute Clinical Impression: Dehydration Nausea & vomiting Qualifiers: Vomiting type: unspecified Vomiting Intractability: non-intractable Qualified Code(s): R11.2 - Nausea with vomiting, unspecified Condition: Good Referrals: Victorino Estes MD [Primary Care Provider] - As per Instructions
--- NOTE | 2017-05-02 16:00 | CPEKG ---
Heart Rate: 53 RR Interval: 1132 P-R Interval: 208 QRSD Interval: 104 QT Interval: 460 QTC Interval: 432 P [place]: -10 QRS [place]: -45 T Wave [place]: -2 EKG Severity - ABNORMAL ECG - EKG Impression: SINUS RHYTHM EKG Impression: LEFT ANTERIOR FASCICULAR BLOCK EKG Impression: BORDERLINE R WAVE PROGRESSION, ANTERIOR LEADS EKG Impression: BORDERLINE T ABNORMALITIES, INFERIOR LEADS Electronically Signed By: Garry Angel 02-May-2017 16:05:37
[2017-05-02 16:09] LABS: PLATELET COUNT 170 10^3/uL (150-400)
[2017-05-02] MEDS ORDERED: ONDANSETRON 4 MG/2 ML VIAL IVP ONE (16:31)
[2017-05-02] MEDS ORDERED: ONDANSETRON DISINTEGRATING 4 MG TAB PO PRN ×2 (21:38→21:41)
[2017-05-02] MEDS ORDERED: ONDANSETRON 4 MG/2 ML VIAL IVP PRN (21:38)
[2017-05-02] MEDS ORDERED: ACETAMINOPHEN 325 MG TAB PO PRN (21:38)
[2017-05-02] MEDS ORDERED: OXYCODONE/APAP 5/325 TAB PO PRN (21:41)
[2017-05-02] MEDS ORDERED: NS 1,000 ML IV SCH (21:45)
[2017-05-02] MEDS ORDERED: WARFARIN SODIUM 4 MG TAB PO SCH (22:00)
--- NOTE | 2017-05-02 22:09 | GHP ---
[f rep st] HISTORY AND PHYSICAL DATE OF ADMISSION: 05/02/2017 CHIEF COMPLAINT: Nausea, vomiting, weakness. HISTORY OF PRESENT ILLNESS: This is an 82-year-old male, who presents with the sudden onset of nause a, perfuse vomiting, and diarrhea starting this morning. It lasted through the morning into the glenn y afternoon. He felt profoundly weak with this. He almost fell when standing up. No sick contacts. No suspicious foods. He does have some chills. No fevers. He has a little bit of abdominal alejandra ess, but not abdominal pain. Things seem to be getting better while being in the hospital. REVIEW OF SYSTEMS: A 10-point review of systems was obtained and other than stated was negative. PAST MEDICAL HISTORY: 1. Hypertension. 2. Type 2 diabetes. 3. DVT 2 years ago. 4. Back arthritis. MEDICATIONS: Reviewed. SOCIAL HISTORY: No smoking. One drink per day. He lives with his . FAMILY HISTORY: Both parents are . PHYSICAL EXAMINATION: VITAL SIGNS: Afebrile, blood pressure 139/74, heart rate 64, oxygen saturatio n 92% on room air. GENERAL: He is well developed and in no apparent distress. HEENT: Nonicteric s clerae. Extraocular movements intact. Dry mucous membranes. NECK: Supple. No thyromegaly. LUNGS : Good effort. Clear to auscultation bilaterally. CARDIOVASCULAR: Regular rate and rhythm. No mu rmurs, rubs, or gallops. ABDOMEN: Positive bowel sounds. Soft, nontender, nondistended. No hepato splenomegaly. EXTREMITIES: No clubbing, cyanosis, or edema. SKIN: Without rash and intact. NEURO LOGIC: Moving all 4 extremities equally. PSYCHIATRIC: Normal affect. LABORATORY DATA: CBC is normal. Chemistry is also normal. EKG personally reviewed and interpreted shows no ischemic changes. ASSESSMENT: This is an 82-year-old male, presenting with gastroenteritis, dehydration, and weakness. PLAN: 1. Gastroenteritis. Appears to be viral. We will check a GI pathogen panel. We will give IV fluid s. If he is eating tomorrow, he can probably be discharged. 2. Hypertension. Continue medications. 3. Type 2 diabetes. Continue metformin. 4. History of DVT. We will check an INR in the morning. /[id number]/MODL
[2017-05-02] MEDS ORDERED: MIRTAZAPINE 15 MG ODTAB PO SCH ×2 (22:15→22:45)
[2017-05-03 04:41] LABS: INR 1.2 (0.83-1.16); PROTIME(PATIENT) 15.4 SEC (12.0-15.0)
[2017-05-03] MEDS ORDERED: MIRTAZAPINE 15 MG ODTAB PO SCH (09:00)
[2017-05-03] MEDS ORDERED: predniSONE 5 MG TAB PO SCH (09:00)
[2017-05-03] MEDS ORDERED: LISINOPRIL 5 MG TAB PO SCH (09:00)
[2017-05-03] MEDS ORDERED: ATENOLOL 25 MG TAB PO SCH (09:00)
[2017-05-03] MEDS ORDERED: metFORMIN SR 500 MG TAB PO SCH (09:00)
[2017-05-03] MEDS ORDERED: PANTOPRAZOLE SODIUM 40 MG TAB PO SCH (09:00)
[2017-05-03] MEDS ORDERED: TAMSULOSIN HCL 0.4 MG CAP PO SCH (09:00)
[2017-05-03 09:04] VITALS: BP 127/72; PULSE 61; RESP 16; TEMP 97.8
[2017-05-03 10:13] VITALS: O2SAT 86
--- NOTE | 2017-05-03 11:18 | PDIAF ---
- Diagnosis Diagnosis: viral gastroenteritis Code Status: Full Code - Medication Management Discharge Medications: Medications to Continue on Transfer Ondansetron Odt [Zofran Odt 4 mg (*)] 4 mg PO Q6 PRN #8 tab 04/15/17 [Last Taken 05/02/17 8mg] oxyCODONE/APAP 5/325 [Percocet 5/325 (*)] 1 tab PO Q4-6PRN PRN #10 tab 04/26/17 [Last Taken Unknown] Atenolol [Tenormin 25 mg (*)] 25 mg PO DAILY 05/02/17 [Last Taken 05/01/17] Herbals/Supplements -Info Only 1 ea PO DAILY 05/02/17 [Last Taken Unknown] Lisinopril [Zestril 5 mg (*)] 5 mg PO DAILY 05/02/17 [Last Taken 05/01/17] Mirtazapine [Remeron soltab 15 mg (*)] 15 mg PO DAILY 05/02/17 [Last Taken 05/01] Omeprazole [Prilosec 20 mg] 20 mg PO DAILY 05/02/17 [Last Taken 05/01/17] Tamsulosin HCl [Flomax 0.4 MG (*)] 0.4 mg PO BID 05/02/17 [Last Taken 05/01/17] Warfarin Sodium [Coumadin 4MG (*)] 4 mg PO EVERY OTHER DAY 05/02/17 [Last Taken 04/30/17] Warfarin Sodium [Coumadin 5MG (*)] 5 mg PO Q2D 05/02/17 [Last Taken 05/01/17] metFORMIN HCL [Metformin HCl ER] 500 mg PO DAILY 05/02/17 [Last Taken 05/01/17] predniSONE 5 mg PO DAILY 05/02/17 [Last Taken 05/01/17] Discharge Medications: Refer to the Discharge Home Medication list for PRN reason. - Orders Services needed: Home Care, Registered Nurse Home Care Face to Face: I certify that this patient was under my care and that I had the required [id number] encounter meeting the encounter requirements on the discharge day. My findings support the fact that the patient is homebound as defined in Home Care Face to Face Continued: CMS Chapter 7 Medicare Benefits Manual 30.1.1 , The condition of the patient is such that there exists a normal inability to leave home and consequently, leaving home would require a considerable and taxing effort. Diet Recommendation: no restrictions on diet Diet Texture: Regular Texture Diet - Labs/Radiology PT/INR Date: 05/06/17 (for warfarin titration) - Follow Up Care Current Providers and Referrals: Victorino Estes MD [Primary Care Provider] - As per Instructions
--- NOTE | 2017-05-03 13:49 | ASDISCHSUM ---
Discharge Information Plan Status:Home with Home Health Medically Cleared to Leave:05/02/2017 Discharge Date:05/03/2017 12:12 PM CM D/C Disposition:Home Health Service ADT D/C Disposition:Home Health Service Projected Discharge Date:05/03/2017 11:00 AM Transportation at D/C:Family Discharge Delay Reason: Follow-Up Date:05/03/2017 11:00 AM Discharge Slot: Final Diagnosis: Placement Information Referral Type:*Home Health Care Services Referral ID:[id number] Provider Name: Address 1: Phone Number: Address 2: Fax Number: City: [place]: State: Patient Contact Information Contact Name:RASHMI Relationship: Address:[address] City:[facility] Phone: State/Zip Code:[place] [address] Email: Financial Information Financial Class: Primary Plan Desc:MEDICARE OUTPATIENT Primary Plan Number:[id number] Secondary Plan Desc: [employer] CLAIMS Secondary Plan Number:[id number] Assessment Information Case Management Discharge Plan Note Case Management Discharge Discharge Order Complete? Answers: Yes Patient to Obtain Answers: via Family Medications Transportation Arranged Answers: Family/Friends Faxed Final Orders Answers: Yes Agency/Facility Transfer Answers: Yes Notes: [facility] Report Printed & Faxed to Receiving Agency Family Notified Answers: Yes Notes: per pt to flower picker at noon Discharge Comments Notes: 05/03/2017 Case Management Note Met w/pt to discuss need for home RN at Dr. Valle's request. Pt in agreement. Arranged home care through [facility]. Faxed orders and notified via phone. Services to start tomorrow. Per pt to transport home. Date Signed: 05/03/2017 11:24 AM Electronically Signed By:Angie Sun RN [facility] Progress Note CM Note CM Note Notes: 05/03/2017 Case Management Note Recieved call from [facility] who felt the needs were lacking for home RN services for Medicare. Refused to care for pt. Alerted Dr. Valle who wanted pt to follow up with PCP during the week and to use the phone nurse services of primary clinic for concerns. Left VM at home number for pt with above info. Date Signed: 05/03/2017 01:48 PM Electronically Signed By:Angie Sun RN Intervention Information
[2017-05-03] MEDS ORDERED: WARFARIN SODIUM 5 MG TAB PO SCH (16:00)
--- NOTE | 2017-05-04 18:17 | GDS ---
[f rep st] DISCHARGE SUMMARY DISCHARGE DIAGNOSES: 1. Acute suspected viral gastroenteritis. 2. Hypertension. 3. Type 2 diabetes. 4. History of deep vein thrombosis on full-dose anticoagulation. 5. Arthritis of the back. HISTORY OF PRESENT ILLNESS: An 82-year-old male, who presents to the emergency department with sudde n onset nausea, vomiting and weakness. CONSULTATIVE SERVICES: None. PROCEDURES: None. HOSPITAL COURSE BY ISSUE: 1. Acute nausea, vomiting and diarrhea. The patient's clinical syndrome was consistent with viral g astroenteritis. He received aggressive fluid resuscitation and had improvement in his symptoms overn ight. Patient's stool formed soon after arrival to the hospital, unable to obtain a specimen for vir al testing. The patient was tolerating a normal diet on the day of disposition and suspect we will h ave a full recovery in the next 24-72 hours. 2. Weakness, suspect related to the severity of his acute illness and dehydration. He has received fluid resuscitation overnight. We have encouraged good p.o. intake of both food and fluids post disp osition and asked that he see his primary care provider next week for his first post discharge follow up, check of vital signs and basic labs. 3. History of deep vein thrombosis. The patient will be continued on his full-dose anticoagulation. He is to follow in his anticoagulation clinic per normal guidelines. 4. Hypertension. The patient's blood pressures remain adequately controlled during this stay. We d id not change any of his medications on disposition. MEDICATIONS AT THE TIME OF TRANSFER: Please reference med rec printed 05/03/2017. FOLLOWUP APPOINTMENTS: With Dr. Morris for post discharge followup next week. PENDING STUDIES AT THE TIME OF THIS DICTATION: None. TIME SPENT: I spent greater than 30 minutes in the planning and coordination of this discharge. /[id number]/MODL
== END 2017-05-03 12:12 | disposition home health service (06) ==
LOC: EDUNIT# → F1N 21:27
PROVIDERS: ADMIT Internal Medicine; ATTEND Internal Medicine
DX: R11.2 Nausea with vomiting, unspecified (principal); R19.7 Diarrhea, unspecified; I10 Essential (primary) hypertension; E11.9 Type 2 diabetes mellitus without complications; M46.90 Unspecified inflammatory spondylopathy, site unspecified; Z79.01 Long term (current) use of anticoagulants; Z86.718 Personal history of other venous thrombosis and embolism
CPT/HCPCS: 93005; G0378; J2405; 96374